=== PATIENT | female | born 1980 | race Caucasian/White ===

== ENCOUNTER 2020-05-06 10:07 | Emergency (ER) | payer OTHER, MEDICAID ==
[~2020-05-06] VITALS: Ht 175.3 cm; Wt 61.2 kg
[2020-05-06 11:29] VITALS: BP 102/55
== END 2020-05-06 11:29 | disposition home or self-care (01) ==
LOC: EDBD 10:07 → ER 10:07
DX: U07.1 COVID-19 (principal)